=== PATIENT | female | born 1985 | race Caucasian/White ===

== ENCOUNTER 2023-12-03 20:26 | Emergency (ER) | payer MEDICAID ==
[~2023-12-03] VITALS: Ht 162.6 cm; Wt 59.0 kg
[2023-12-03 22:20] VITALS: BP 107/72; PULSE 108; RESP 17; TEMP 98.3
[2023-12-03 23:18] LABS: COVID AG,FIA SOURCE NASAL SWAB
[2023-12-03 23:37] LABS: SARS-COV2 (COVID) ANTIGEN,FIA Negative (Negative)
== END 2023-12-04 05:06 | disposition home or self-care (01) ==
LOC: EMS 20:27
DX: F20.9 Schizophrenia, unspecified (principal); F17.210 Nicotine dependence, cigarettes, uncomplicated; F12.90 Cannabis use, unspecified, uncomplicated; Z20.822 Contact with and (suspected) exposure to COVID-19
CPT/HCPCS: 99285; Z7502